=== PATIENT | female | born 1955 | race Caucasian/White ===

== ENCOUNTER 2022-03-08 12:03 | Outpatient (RCR) | payer MEDICARE, BC | END 2022-03-09 | LOC: M OT 12:03 → M PT 12:03 | DX: I69.30 Unspecified sequelae of cerebral infarction (principal) ==

== ENCOUNTER 2022-03-19 17:39 | Inpatient (IN) | payer MEDICARE, BC ==
[~2022-03-19] VITALS: Ht 172.7 cm; Wt 72.0 kg
[2022-03-19 18:35] LABS: BASO # 0.1 10^3/uL (0.0-0.2); BASO % 0.9 % (0.0-1.0); EOS # 0.1 10^3/uL (0.0-0.5); EOS % 1.1 % (0.0-3.0); HEMATOCRIT 39.1 % (36.0-47.0); HEMOGLOBIN 12.5 g/dl (12.0-15.5); LYMPH # 1.7 10^3/uL (1.5-5.0); LYMPH % 13.7 % (24.0-44.0); MEAN CORPUSCULAR VOLUME 87.7 fl (80.0-96.0); MONO # 0.9 10^3/uL (0.0-0.8); MONO % 7.2 % (2.0-8.0); NEUTROPHILS # 9.4 10^3/uL (1.5-8.5); NEUTROPHILS % 76.7 % (36.0-66.0); PLATELET COUNT, AUTOMATED 365 10^3/uL (150-450); RED BLOOD COUNT 4.46 10^6/uL (4.00-5.40); WHITE BLOOD COUNT 12.3 10^3/uL (4.0-10.0)
[2022-03-19 18:59] LABS: INR 1.04
[2022-03-19 19:00] LABS: PARTIAL THROMBOPLASTIN TIME 33.6 SECONDS (25.9-37.0)
[2022-03-19 19:05] LABS: CK-MB VALUE MASS 2.6 NG/ML (<3.6); MB/CK RELATIVE INDEX 2.63 (< OR =4)
[2022-03-19 19:12] LABS: ALBUMIN 3.4 GM/DL (3.2-5.2); ALT/SGPT 28 U/L (12-78); BILIRUBIN,DIRECT 0.2 MG/DL (0.0-0.2); BILIRUBIN,TOTAL 0.4 MG/DL (0.2-1.0); BLOOD UREA NITROGEN 15 MG/DL (7-18); CALCIUM LEVEL 9.8 MG/DL (8.8-10.2); CARBON DIOXIDE LEVEL 26 MEQ/L (21-32); CHLORIDE LEVEL 105 MEQ/L (98-107); CREATININE FOR GFR 0.94 MG/DL (0.55-1.30); FREE T4 1.13 NG/DL (0.76-1.46); GLOMERULAR FILTRATION RATE > 60.0 (>45); GLUCOSE, FASTING 135 MG/DL (70-100); SODIUM LEVEL 137 MEQ/L (136-145); TOTAL PROTEIN 7.9 GM/DL (6.4-8.2)
[2022-03-19 19:14] LABS: RSV AMPLIFICATION NEGATIVE (NEGATIVE)
[2022-03-19 19:58] LABS: CK-MB VALUE MASS 2.1 NG/ML (<3.6); MB/CK RELATIVE INDEX 1.79 (< OR =4)
[2022-03-19] MEDS ORDERED: ATOR40TA75 PO (20:54)
[2022-03-19] MEDS ORDERED: SPIR-10 PO (20:54)
[2022-03-19] MEDS ORDERED: ENOX80IN3 INJ (20:54)
[2022-03-19] MEDS ORDERED: ASPI-226 PO (20:54)
[2022-03-19] MEDS ORDERED: AMLO1TAB24 PO (20:54)
[2022-03-19] MEDS ORDERED: HOME MED LIST COMPLETE! XX SCH (20:55)
[2022-03-19] MEDS ORDERED: NS 1,000 ML IV SCH (21:25)
[2022-03-19] MEDS ORDERED: CALCIUM CARBONATE 500 MG CHEW U/D PO ONE (22:00)
[2022-03-19] MEDS ORDERED: ASPIRIN 81 MG CHEW TABLET PO ONE (22:00)
[2022-03-20] VITALS (7 sets, daily range): BP systolic 119–160; BP diastolic 67–77; PULSE 70
[2022-03-20] MEDS: ATORVASTATIN 20 MG TAB PO SCH ×2 (00:39→20:47)
[2022-03-20] MEDS: ENOXAPARIN 80MG/0.8ML SYRINGE (J1650 PER 10MG) SC SCH ×3 (00:39→20:48)
[2022-03-20 03:40] LABS: HEMATOCRIT 36.4 % (36.0-47.0); HEMOGLOBIN 11.7 g/dl (12.0-15.5); MEAN CORPUSCULAR HEMOGLOBIN 28.5 pg (27.0-33.0); MEAN CORPUSCULAR HGB CONC 32.1 g/dl (32.0-36.5); MEAN CORPUSCULAR VOLUME 88.8 fl (80.0-96.0); PLATELET COUNT, AUTOMATED 309 10^3/uL (150-450); WHITE BLOOD COUNT 11.9 10^3/uL (4.0-10.0)
[2022-03-20 03:51] LABS: INR 1.16; PROTHROMBIN TIME 15.2 SECONDS (12.7-14.5)
[2022-03-20 03:52] LABS: PARTIAL THROMBOPLASTIN TIME 47.1 SECONDS (25.9-37.0)
[2022-03-20] MEDS ORDERED: ASPIRIN 81 MG CHEW TABLET PO SCH (09:00)
[2022-03-21] VITALS: BP 134/82
[2022-03-21 04:00] VITALS: BP 153/80
[2022-03-21 06:42] LABS: BASO # 0.1 10^3/uL (0.0-0.2); BASO % 1.2 % (0.0-1.0); EOS # 0.3 10^3/uL (0.0-0.5); EOS % 2.3 % (0.0-3.0); HEMATOCRIT 35.5 % (36.0-47.0); HEMOGLOBIN 11.2 g/dl (12.0-15.5); LYMPH # 1.7 10^3/uL (1.5-5.0); LYMPH % 14.9 % (24.0-44.0); MEAN CORPUSCULAR HEMOGLOBIN 28.1 pg (27.0-33.0); MEAN CORPUSCULAR HGB CONC 31.5 g/dl (32.0-36.5); MONO # 0.9 10^3/uL (0.0-0.8); MONO % 8.1 % (2.0-8.0); NEUTROPHILS # 8.2 10^3/uL (1.5-8.5); NEUTROPHILS % 73.1 % (36.0-66.0); PLATELET COUNT, AUTOMATED 337 10^3/uL (150-450); RED BLOOD COUNT 3.99 10^6/uL (4.00-5.40); WHITE BLOOD COUNT 11.2 10^3/uL (4.0-10.0)
[2022-03-21 07:36] LABS: BLOOD UREA NITROGEN 19 MG/DL (7-18); CALCIUM LEVEL 9.5 MG/DL (8.8-10.2); CARBON DIOXIDE LEVEL 26 MEQ/L (21-32); CHLORIDE LEVEL 107 MEQ/L (98-107); CREATININE FOR GFR 0.65 MG/DL (0.55-1.30); GLOMERULAR FILTRATION RATE > 60.0 (>45); GLUCOSE, FASTING 108 MG/DL (70-100); MAGNESIUM LEVEL 2.2 MG/DL (1.8-2.4); POTASSIUM SERUM 3.7 MEQ/L (3.5-5.1); SODIUM LEVEL 137 MEQ/L (136-145)
[2022-03-21 09:17] VITALS: BP 147/68
[2022-03-21] MEDS: ENOXAPARIN 80MG/0.8ML SYRINGE (J1650 PER 10MG) SC SCH ×3 (09:27→20:34)
[2022-03-21] MEDS: ASPIRIN 81 MG CHEW TABLET PO SCH (09:28)
[2022-03-21] MEDS: SPIRONOLACTONE 12.5MG PER 1/2 TABLET PO SCH (09:28)
[2022-03-21] MEDS: amLODIPine 5 MG TAB PO SCH (09:28)
[2022-03-21 11:58] VITALS: BP 114/63
[2022-03-21 15:47] VITALS: BP 133/74
[2022-03-21 19:09] VITALS: BP 132/70
[2022-03-21] MEDS: ATORVASTATIN 20 MG TAB PO SCH (20:32)
[2022-03-22] VITALS: BP_SYST 132; BP_SYST 140; BP_DIAS 70; BP_DIAS 81
[2022-03-22 04:00] VITALS: BP 142/72
[2022-03-22 06:02] LABS: BASO # 0.1 10^3/uL (0.0-0.2); BASO % 1.2 % (0.0-1.0); EOS # 0.3 10^3/uL (0.0-0.5); HEMATOCRIT 34.9 % (36.0-47.0); HEMOGLOBIN 11.2 g/dl (12.0-15.5); LYMPH # 1.7 10^3/uL (1.5-5.0); LYMPH % 21.9 % (24.0-44.0); MEAN CORPUSCULAR HEMOGLOBIN 28.4 pg (27.0-33.0); MEAN CORPUSCULAR HGB CONC 32.1 g/dl (32.0-36.5); MEAN CORPUSCULAR VOLUME 88.4 fl (80.0-96.0); MONO # 0.7 10^3/uL (0.0-0.8); MONO % 8.9 % (2.0-8.0); NEUTROPHILS # 4.8 10^3/uL (1.5-8.5); NEUTROPHILS % 63.6 % (36.0-66.0); PLATELET COUNT, AUTOMATED 345 10^3/uL (150-450); RED BLOOD COUNT 3.95 10^6/uL (4.00-5.40); WHITE BLOOD COUNT 7.5 10^3/uL (4.0-10.0)
[2022-03-22 06:48] LABS: BLOOD UREA NITROGEN 19 MG/DL (7-18); CALCIUM LEVEL 9.7 MG/DL (8.8-10.2); CARBON DIOXIDE LEVEL 25 MEQ/L (21-32); CHLORIDE LEVEL 106 MEQ/L (98-107); CREATININE FOR GFR 0.67 MG/DL (0.55-1.30); GLOMERULAR FILTRATION RATE > 60.0 (>45); GLUCOSE, FASTING 107 MG/DL (70-100); MAGNESIUM LEVEL 2.1 MG/DL (1.8-2.4); SODIUM LEVEL 137 MEQ/L (136-145)
[2022-03-22 07:24] VITALS: BP 140/72
[2022-03-22 08:25] VITALS: BP 140/72
[2022-03-22] MEDS: SPIRONOLACTONE 12.5MG PER 1/2 TABLET PO SCH (08:25)
[2022-03-22] MEDS: amLODIPine 5 MG TAB PO SCH (08:25)
[2022-03-22] MEDS: ASPIRIN 81 MG CHEW TABLET PO SCH (08:26)
[2022-03-22] MEDS ORDERED: ATOR80TA59 PO (09:09)
== END 2022-03-22 09:41 | disposition home or self-care (01) | DRG 65 ==
LOC: M ED 17:39 → M ED INP 21:23 → M PCU 03-20 00:04
PROVIDERS: ADMIT Internal Medicine; ATTEND Internal Medicine
PROC: B246ZZZ Ultrasonography of Right and Left Heart (ICD-10-PCS; principal; 2022-03-19)
DX: I63.9 Cerebral infarction, unspecified (principal); I69.354 Hemiplegia and hemiparesis following cerebral infarction affecting left non-dominant side; I10 Essential (primary) hypertension; E78.5 Hyperlipidemia, unspecified; Z20.822 Contact with and (suspected) exposure to COVID-19; D69.6 Thrombocytopenia, unspecified; C54.1 Malignant neoplasm of endometrium; Z79.82 Long term (current) use of aspirin; Z79.899 Other long term (current) drug therapy; Z88.2 Allergy status to sulfonamides; Z91.041 Radiographic dye allergy status

== ENCOUNTER 2022-04-05 12:11 | Outpatient (RCR) | payer MEDICARE, BC ==
[~2022-04-05 12:11] MED LIST: AMLO1TAB24 PO; ASPI-226 PO; ATOR40TA75 PO; ATOR80TA59 PO; ENOX80IN3 INJ; SPIR-10 PO
[2022-04-09] MEDS ORDERED: ENOX40IN3 SC (21:02)
[2022-04-09] MEDS ORDERED: ONDA8TAB8 PO (21:02)
[2022-04-09] MEDS ORDERED: ZETI10TA16 PO (21:02)
== END 2022-04-08 ==
LOC: M PT 12:11
PROVIDERS: ATTEND Internal Medicine
DX: I69.320 Aphasia following cerebral infarction (principal); F80.1 Expressive language disorder; R26.9 Unspecified abnormalities of gait and mobility; I69.318 Other symptoms and signs involving cognitive functions following cerebral infarction; I69.398 Other sequelae of cerebral infarction

== ENCOUNTER → 2022-04-15 | Outpatient (CLI) | payer MEDICARE, BC ==
[~2022-04-15] MED LIST changes: +CEPH500C PO; +ENOX40IN3 SC; +OMEP-173; +ONDA8TAB8 PO; +ZETI10TA16 PO
== END ==
LOC: M WUC 10:44
PROVIDERS: ATTEND Internal Medicine
DX: R07.89 Other chest pain (principal); Z95.828 Presence of other vascular implants and grafts

== ENCOUNTER 2022-04-17 17:00 | Emergency (ER) | payer MEDICARE, BC ==
[~2022-04-17] VITALS: Ht 170.2 cm; Wt 68.2 kg
[~2022-04-17 17:00] MED LIST changes: -CEPH500C PO; -OMEP-173
[2022-04-17] MEDS ORDERED: ISOVUE-370 76% 100ML VIAL As Ordered ONE (17:33)
[2022-04-17 17:40] LABS: BASO # 0.1 10^3/uL (0.0-0.2); BASO % 1.3 % (0.0-1.0); EOS # 0.1 10^3/uL (0.0-0.5); HEMATOCRIT 32.1 % (36.0-47.0); HEMOGLOBIN 10.4 g/dl (12.0-15.5); LYMPH # 1.3 10^3/uL (1.5-5.0); MEAN CORPUSCULAR HEMOGLOBIN 28.7 pg (27.0-33.0); MEAN CORPUSCULAR HGB CONC 32.4 g/dl (32.0-36.5); MEAN CORPUSCULAR VOLUME 88.4 fl (80.0-96.0); MONO # 0.4 10^3/uL (0.0-0.8); MONO % 11.1 % (2.0-8.0); NEUTROPHILS # 2.1 10^3/uL (1.5-8.5); NEUTROPHILS % 52.3 % (36.0-66.0); PLATELET COUNT, AUTOMATED 284 10^3/uL (150-450); RED BLOOD COUNT 3.63 10^6/uL (4.00-5.40)
[2022-04-17] MEDS ORDERED: SODIUM CHLORIDE 0.9% INJ 10 ML SYR IV SCH (18:00)
[2022-04-17 18:08] LABS: PROTHROMBIN TIME 13.6 SECONDS (12.7-14.5)
[2022-04-17 18:09] LABS: PARTIAL THROMBOPLASTIN TIME 36.9 SECONDS (25.9-37.0)
[2022-04-17 18:13] LABS: CK-MB VALUE MASS 3.1 NG/ML (<3.6); MB/CK RELATIVE INDEX 3.1 (< OR =4)
[2022-04-17 18:28] LABS: VENOUS O2 SATURATION 83.3 % (60.0-80.0); VENOUS PARTIAL PRESSURE CO2 42.4 mmHg (38.0-50.0); VENOUS PARTIAL PRESSURE O2 49.3 mmHg (30.0-50.0); VENOUS PH 7.389 UNITS (7.330-7.430); VENOUS STANDARD HCO3 24.2 MEQ/L; VENOUS TOTAL CO2 26.3 MEQ/L (24.0-28.0)
[2022-04-17] MEDS ORDERED: MORPHINE 2 MG/ML 1ML VIAL IV ONE (18:30)
[2022-04-17] MEDS ORDERED: OMEP-173 (18:51)
[2022-04-17 19:15] VITALS: BP 139/66
[2022-04-17] MEDS ORDERED: ENOXAPARIN 80MG/0.8ML SYRINGE (J1650 PER 10MG) SC ONE (19:25)
[2022-04-17 19:29] LABS: ALBUMIN 2.8 GM/DL (3.2-5.2); ALT/SGPT 56 U/L (12-78); BILIRUBIN,DIRECT < 0.1 MG/DL (0.0-0.2); BILIRUBIN,TOTAL 0.2 MG/DL (0.2-1.0); TOTAL PROTEIN 6.2 GM/DL (6.4-8.2)
[2022-04-17 20:15] VITALS: BP 122/60
[2022-04-17] MEDS ORDERED: cefTRIAXone SOD 1 GM in D5W MINI-BAG PLUS 50 ML IV ONE (22:00)
[2022-04-17] MEDS ORDERED: CEPH500C PO (23:35)
[2022-04-17 23:45] VITALS: BP 127/63
== END 2022-04-18 00:11 | disposition home or self-care (01) ==
LOC: M ED 17:00
DX: R41.0 Disorientation, unspecified (principal); R90.82 White matter disease, unspecified; I10 Essential (primary) hypertension; E78.5 Hyperlipidemia, unspecified; Z79.899 Other long term (current) drug therapy; Z88.1 Allergy status to other antibiotic agents; Z88.2 Allergy status to sulfonamides; Z95.828 Presence of other vascular implants and grafts
CPT/HCPCS: 70450; 70496; 70498; 70551; 71045; 80047; 80076; 81000; 81015; 82140; 82550; 82553; 82803; 83605; 84484; 85025; 85610; 85730; 86850; 86900; 86901; 87088; 87186; 93005; 93041; 94760; 96374; 96375; 99285; J0696; J1642; J1650; J2270; Q9967

== ENCOUNTER → 2022-04-19 | Outpatient (CLI) | payer MEDICARE, BC ==
[~2022-04-19] MED LIST changes: +CEPH500C PO; +OMEP-173
[2022-04-19 09:52] LABS: BASO # 0.1 10^3/uL (0.0-0.2); BASO % 2.4 % (0.0-1.0); EOS # 0.2 10^3/uL (0.0-0.5); EOS % 4.1 % (0.0-3.0); HEMATOCRIT 36.2 % (36.0-47.0); HEMOGLOBIN 11.1 g/dl (12.0-15.5); LYMPH # 1.5 10^3/uL (1.5-5.0); LYMPH % 35.5 % (24.0-44.0); MEAN CORPUSCULAR HGB CONC 30.7 g/dl (32.0-36.5); MEAN CORPUSCULAR VOLUME 91.4 fl (80.0-96.0); MONO # 0.5 10^3/uL (0.0-0.8); MONO % 11.5 % (2.0-8.0); NEUTROPHILS # 1.9 10^3/uL (1.5-8.5); NEUTROPHILS % 46.3 % (36.0-66.0); PLATELET COUNT, AUTOMATED 300 10^3/uL (150-450); RED BLOOD COUNT 3.96 10^6/uL (4.00-5.40); WHITE BLOOD COUNT 4.2 10^3/uL (4.0-10.0)
== END ==
LOC: M LAB 08:50
PROVIDERS: ATTEND Nurse Practitioner
DX: C55 Malignant neoplasm of uterus, part unspecified (principal); Z79.899 Other long term (current) drug therapy

== ENCOUNTER → 2022-04-25 | Outpatient (CLI) | payer MEDICARE, BC | LOC: M WUC 10:17 | PROVIDERS: ATTEND Internal Medicine | DX: Q05.9 Spina bifida, unspecified (principal); M47.816 Spondylosis without myelopathy or radiculopathy, lumbar region ==

== ENCOUNTER 2022-05-02 10:02 | Emergency (ER) | payer MEDICARE, BC ==
[~2022-05-02] VITALS: Ht 170.2 cm; Wt 71.1 kg
[2022-05-02 12:18] LABS: BASO # 0.1 10^3/uL (0.0-0.2); BASO % 1.4 % (0.0-1.0); EOS # 0.2 10^3/uL (0.0-0.5); EOS % 4.8 % (0.0-3.0); HEMATOCRIT 34.3 % (36.0-47.0); HEMOGLOBIN 11.1 g/dl (12.0-15.5); LYMPH # 1.4 10^3/uL (1.5-5.0); LYMPH % 39.9 % (24.0-44.0); MEAN CORPUSCULAR HEMOGLOBIN 29.3 pg (27.0-33.0); MEAN CORPUSCULAR HGB CONC 32.4 g/dl (32.0-36.5); MEAN CORPUSCULAR VOLUME 90.5 fl (80.0-96.0); MONO # 0.2 10^3/uL (0.0-0.8); MONO % 5.1 % (2.0-8.0); NEUTROPHILS # 1.7 10^3/uL (1.5-8.5); NEUTROPHILS % 48.5 % (36.0-66.0); PLATELET COUNT, AUTOMATED 210 10^3/uL (150-450); RED BLOOD COUNT 3.79 10^6/uL (4.00-5.40); WHITE BLOOD COUNT 3.5 10^3/uL (4.0-10.0)
[2022-05-02 12:31] LABS: INR 0.91; PROTHROMBIN TIME 12.5 SECONDS (12.5-14.5)
[2022-05-02 12:32] LABS: PARTIAL THROMBOPLASTIN TIME 39.1 SECONDS (24.8-34.2)
[2022-05-02 12:50] LABS: RSV AMPLIFICATION NEGATIVE (NEGATIVE)
[2022-05-02 13:13] LABS: CK-MB VALUE MASS 3.6 NG/ML (<3.6); MB/CK RELATIVE INDEX 4.29 (< OR =4)
[2022-05-02 13:19] LABS: ALBUMIN 3.5 GM/DL (3.2-5.2); ALT/SGPT 54 U/L (12-78); BILIRUBIN,DIRECT < 0.1 MG/DL (0.0-0.2); BILIRUBIN,TOTAL 0.3 MG/DL (0.2-1.0); BLOOD UREA NITROGEN 14 MG/DL (7-18); CALCIUM LEVEL 9.8 MG/DL (8.8-10.2); CARBON DIOXIDE LEVEL 28 MEQ/L (21-32); CHLORIDE LEVEL 106 MEQ/L (98-107); CREATININE FOR GFR 0.69 MG/DL (0.55-1.30); GLOMERULAR FILTRATION RATE > 60.0 (>45); GLUCOSE, FASTING 128 MG/DL (70-100); NT-PRO BNP 81 PG/ML (<125); POTASSIUM SERUM 3.9 MEQ/L (3.5-5.1); SODIUM LEVEL 137 MEQ/L (136-145)
[2022-05-02] MEDS ORDERED: ISOVUE-370 76% 100ML VIAL As Ordered ONE (13:36)
[2022-05-02 15:04] LABS: CK-MB VALUE MASS 3.4 NG/ML (<3.6); MB/CK RELATIVE INDEX 4.25 (< OR =4)
[2022-05-02 16:38] LABS: CK-MB VALUE MASS 2.9 NG/ML (<3.6); MB/CK RELATIVE INDEX 3.82 (< OR =4)
[2022-05-02] MEDS ORDERED: SODIUM CHLORIDE 0.9% INJ 10 ML SYR IV PRN (17:05)
[2022-05-02 17:30] VITALS: BP 146/72
[2022-05-02] MEDS ORDERED: SODIUM CHLORIDE 0.9% INJ 10 ML SYR IV SCH (18:00)
== END 2022-05-02 17:45 | disposition home or self-care (01) ==
LOC: M ED 10:02
DX: R07.9 Chest pain, unspecified (principal); I10 Essential (primary) hypertension; E78.5 Hyperlipidemia, unspecified; Z86.73 Personal history of transient ischemic attack (TIA), and cerebral infarction without residual deficits; H40.9 Unspecified glaucoma; F32.9 Major depressive disorder, single episode, unspecified; Z79.899 Other long term (current) drug therapy; Z88.2 Allergy status to sulfonamides
CPT/HCPCS: 71045; 71275; 80048; 80076; 82550; 82553; 83880; 84443; 84484; 85025; 85610; 85730; 87631; 93005; 93041; 94760; 99285; J1642; Q9967

== ENCOUNTER 2022-05-05 13:36 | Outpatient (RCR) | payer MEDICARE, BC | END 2022-05-09 23:59 | disposition home or self-care (01) | LOC: M OT 13:36 → M ST 05-10 12:14 → M PT 05-10 12:14 | PROVIDERS: ATTEND Internal Medicine | DX: I63.9 Cerebral infarction, unspecified (principal); F80.1 Expressive language disorder; R26.9 Unspecified abnormalities of gait and mobility ==

== ENCOUNTER → 2022-05-09 | Outpatient (CLI) | payer MEDICARE, BC ==
[2022-05-09 10:47] LABS: BASO % 0.9 % (0.0-1.0); EOS # 0.1 10^3/uL (0.0-0.5); HEMOGLOBIN 10.9 g/dl (12.0-15.5); LYMPH # 1.3 10^3/uL (1.5-5.0); LYMPH % 36.4 % (24.0-44.0); MEAN CORPUSCULAR HEMOGLOBIN 28.7 pg (27.0-33.0); MEAN CORPUSCULAR HGB CONC 30.3 g/dl (32.0-36.5); MEAN CORPUSCULAR VOLUME 94.7 fl (80.0-96.0); MONO # 0.4 10^3/uL (0.0-0.8); MONO % 10.2 % (2.0-8.0); NEUTROPHILS # 1.7 10^3/uL (1.5-8.5); NEUTROPHILS % 50.2 % (36.0-66.0); PLATELET COUNT, AUTOMATED 206 10^3/uL (150-450); WHITE BLOOD COUNT 3.4 10^3/uL (4.0-10.0)
== END ==
LOC: M LAB 08:45
PROVIDERS: ATTEND Nurse Practitioner
DX: C55 Malignant neoplasm of uterus, part unspecified (principal); Z79.899 Other long term (current) drug therapy

== ENCOUNTER → 2022-05-30 | Outpatient (CLI) | payer MEDICARE, BC ==
[2022-05-30 09:00] LABS: BASO % 1.3 % (0.0-1.0); EOS % 1.3 % (0.0-3.0); HEMATOCRIT 32.8 % (36.0-47.0); HEMOGLOBIN 10.3 g/dl (12.0-15.5); LYMPH # 1.3 10^3/uL (1.5-5.0); LYMPH % 39.3 % (24.0-44.0); MEAN CORPUSCULAR HEMOGLOBIN 29.7 pg (27.0-33.0); MEAN CORPUSCULAR HGB CONC 31.4 g/dl (32.0-36.5); MEAN CORPUSCULAR VOLUME 94.5 fl (80.0-96.0); MONO # 0.3 10^3/uL (0.0-0.8); MONO % 8.5 % (2.0-8.0); NEUTROPHILS # 1.6 10^3/uL (1.5-8.5); NEUTROPHILS % 49.3 % (36.0-66.0); PLATELET COUNT, AUTOMATED 161 10^3/uL (150-450); RED BLOOD COUNT 3.47 10^6/uL (4.00-5.40); WHITE BLOOD COUNT 3.2 10^3/uL (4.0-10.0)
== END ==
LOC: M LAB 08:00
PROVIDERS: ATTEND Nurse Practitioner
DX: C55 Malignant neoplasm of uterus, part unspecified (principal); Z79.899 Other long term (current) drug therapy

== ENCOUNTER → 2022-06-07 12:00 | Outpatient (RCR) | payer MEDICARE, BC ==
[~2022-06-07 12:00] MED LIST changes: +EZET10TA21 PO; -OMEP-173; +OMEP-173 PO; +ONDA4TAB6 PO; +PERC10TA26 PO; +TRAM50TA2 PO; +[UNRECOGNIZED DRUG - OTHER] PO
== END | disposition home or self-care (01) ==
LOC: M PT 05-10 12:15 → M ST 05-12 12:46 → M OT 05-12 14:19 → M ST 05-17 12:00 → M OT 05-17 13:15 → M PT 05-17 14:30 → M OT 05-26 12:01 → M ST 05-26 12:01 → M ONCM 05-30 08:30 → M OT 05-31 12:00 → M ST 05-31 12:00 → M PT 05-31 12:00 → M ST 11:59 → M OT 12:00 → M PT 12:00
PROVIDERS: ATTEND Internal Medicine
DX: I63.9 Cerebral infarction, unspecified (principal); F80.1 Expressive language disorder; R26.1 Paralytic gait

== ENCOUNTER → 2022-06-20 | Outpatient (REF) | payer MEDICARE, BC ==
[~2022-06-20] MED LIST changes: -EZET10TA21 PO; +OMEP-173; -OMEP-173 PO; -ONDA4TAB6 PO; -PERC10TA26 PO; -TRAM50TA2 PO; -[UNRECOGNIZED DRUG - OTHER] PO
[2022-06-20 09:01] LABS: BASO % 0.8 % (0.0-1.0); EOS % 0.8 % (0.0-3.0); HEMATOCRIT 30.6 % (36.0-47.0); HEMOGLOBIN 9.9 g/dl (12.0-15.5); LYMPH # 0.5 10^3/uL (1.5-5.0); LYMPH % 20.5 % (24.0-44.0); MEAN CORPUSCULAR HEMOGLOBIN 31.3 pg (27.0-33.0); MEAN CORPUSCULAR HGB CONC 32.4 g/dl (32.0-36.5); MEAN CORPUSCULAR VOLUME 96.8 fl (80.0-96.0); MONO # 0.2 10^3/uL (0.0-0.8); MONO % 8.2 % (2.0-8.0); NEUTROPHILS # 1.7 10^3/uL (1.5-8.5); NEUTROPHILS % 69.3 % (36.0-66.0); PLATELET COUNT, AUTOMATED 143 10^3/uL (150-450); RED BLOOD COUNT 3.16 10^6/uL (4.00-5.40); WHITE BLOOD COUNT 2.4 10^3/uL (4.0-10.0)
== END ==
LOC: M LAB REF 08:35
PROVIDERS: ATTEND Nurse Practitioner
DX: C55 Malignant neoplasm of uterus, part unspecified (principal); Z79.899 Other long term (current) drug therapy

== ENCOUNTER 2022-06-23 12:29 | Outpatient (RCR) | payer MEDICARE, BC ==
[~2022-06-23 12:29] MED LIST changes: -OMEP-173; +OMEP-173 PO; +SODIUM CHLORIDE 0.9% INJ 10 ML SYR IV PRN
[2022-06-27] MEDS ORDERED: EZET10TA21 PO (10:57)
[2022-06-27] MEDS ORDERED: [UNRECOGNIZED DRUG - OTHER] PO (10:57)
[2022-06-27] MEDS ORDERED: TRAM50TA2 PO (10:57)
[2022-06-27] MEDS ORDERED: CEPH500C PO (10:57)
[2022-06-27] MEDS ORDERED: ONDA4TAB6 PO (16:00)
[2022-06-27] MEDS ORDERED: PERC10TA26 PO (16:00)
== END 2022-07-09 ==
LOC: M PT 12:29 → M ST 12:29
PROVIDERS: ATTEND Internal Medicine
DX: I63.9 Cerebral infarction, unspecified (principal); F80.1 Expressive language disorder; R26.9 Unspecified abnormalities of gait and mobility; R47.01 Aphasia

== ENCOUNTER 2022-06-27 09:25 | Emergency (ER) | payer MEDICARE, BC ==
[~2022-06-27] VITALS: Ht 172.7 cm; Wt 68.2 kg
[~2022-06-27 09:25] MED LIST changes: -SODIUM CHLORIDE 0.9% INJ 10 ML SYR IV PRN
[2022-06-27] MEDS: HYDROMORPHONE HCL 0.5 MG/ 0.5 ML SYRINGE (J1170 PER 1) IV PRN ×2 (10:29→12:27)
[2022-06-27] MEDS ORDERED: TRAM50TA2 PO (10:57)
[2022-06-27] MEDS ORDERED: CEPH500C PO (10:57)
[2022-06-27] MEDS ORDERED: [UNRECOGNIZED DRUG - OTHER] PO (10:57)
[2022-06-27] MEDS ORDERED: EZET10TA21 PO (10:57)
[2022-06-27] MEDS ORDERED: ONDANSETRON 4MG 2ML VIAL IV ONE (15:40)
[2022-06-27] MEDS ORDERED: PERC10TA26 PO (16:00)
[2022-06-27] MEDS ORDERED: ONDA4TAB6 PO (16:00)
[2022-06-27 16:16] VITALS: BP 130/71
== END 2022-06-27 16:28 | disposition home or self-care (01) ==
LOC: M ED 09:25
DX: S42.201A Unspecified fracture of upper end of right humerus, initial encounter for closed fracture (principal); W00.0XXA Fall on same level due to ice and snow, initial encounter; Y92.89 Other specified places as the place of occurrence of the external cause; Y92.099 Unspecified place in other non-institutional residence as the place of occurrence of the external cause; E78.5 Hyperlipidemia, unspecified; Z86.73 Personal history of transient ischemic attack (TIA), and cerebral infarction without residual deficits; K21.9 Gastro-esophageal reflux disease without esophagitis; C80.1 Malignant (primary) neoplasm, unspecified; Z92.21 Personal history of antineoplastic chemotherapy; Z95.818 Presence of other cardiac implants and grafts; Z79.899 Other long term (current) drug therapy; Z88.2 Allergy status to sulfonamides
CPT/HCPCS: 70450; 71101; 72125; 72220; 73030; 73070; 73100; 73502; 96374; 96375; 96376; 99283; J1170; J2405

== ENCOUNTER → 2022-07-05 | Outpatient (REF) | payer MEDICARE, BC ==
[~2022-07-05] MED LIST changes: +EZET10TA21 PO; +ONDA4TAB6 PO; +PERC10TA26 PO; +TRAM50TA2 PO; +[UNRECOGNIZED DRUG - OTHER] PO
[2022-07-05 16:38] LABS: BASO % 0.3 % (0.0-1.0); HEMATOCRIT 26.4 % (36.0-47.0); HEMOGLOBIN 8.5 g/dl (12.0-15.5); LYMPH % 29.4 % (24.0-44.0); MEAN CORPUSCULAR HEMOGLOBIN 30.8 pg (27.0-33.0); MEAN CORPUSCULAR HGB CONC 32.2 g/dl (32.0-36.5); MEAN CORPUSCULAR VOLUME 95.7 fl (80.0-96.0); MONO # 0.3 10^3/uL (0.0-0.8); MONO % 7.7 % (2.0-8.0); NEUTROPHILS % 62.3 % (36.0-66.0); PLATELET COUNT, AUTOMATED 250 10^3/uL (150-450); RED BLOOD COUNT 2.76 10^6/uL (4.00-5.40); WHITE BLOOD COUNT 3.2 10^3/uL (4.0-10.0)
[2022-07-05 17:18] LABS: ALKALINE PHOSPHATASE 97 U/L (46-116); ALT/SGPT 47 U/L (7.0-40); AST/SGOT 75 U/L (<34); BILIRUBIN,TOTAL 0.7 MG/DL (0.3-1.2); BLOOD UREA NITROGEN 20 MG/DL (9-23); CALCIUM LEVEL 8.5 MG/DL (8.3-10.6); CARBON DIOXIDE LEVEL 26 MMOL/L (20-31); CHLORIDE LEVEL 97 MMOL/L (98-107); CREATININE FOR GFR 0.67 MG/DL (0.55-1.30); GLOMERULAR FILTRATION RATE > 60.0 (>45); GLUCOSE, FASTING 98 MG/DL (74-106); POTASSIUM SERUM 3.5 MMOL/L (3.5-5.1); SODIUM LEVEL 132 MMOL/L (136-145); TOTAL PROTEIN 5.9 G/DL (5.7-8.2)
== END ==
LOC: M LAB REF 16:28
PROVIDERS: ATTEND Colon & Rectal Surgery
DX: C54.1 Malignant neoplasm of endometrium (principal)

== ENCOUNTER → 2022-07-18 | Outpatient (REF) ==
[2022-07-18 11:40] LABS: HEMATOCRIT 28.4 % (36.0-47.0); HEMOGLOBIN 9.2 g/dl (12.0-15.5); MEAN CORPUSCULAR HEMOGLOBIN 32.2 pg (27.0-33.0); MEAN CORPUSCULAR HGB CONC 32.4 g/dl (32.0-36.5); MEAN CORPUSCULAR VOLUME 99.3 fl (80.0-96.0); PLATELET COUNT, AUTOMATED 408 10^3/uL (150-450); RED BLOOD COUNT 2.86 10^6/uL (4.00-5.40)
[2022-07-18 11:57] LABS: BLOOD UREA NITROGEN 14 MG/DL (9-23); CALCIUM LEVEL 9.4 MG/DL (8.3-10.6); CARBON DIOXIDE LEVEL 26 MMOL/L (20-31); CHLORIDE LEVEL 99 MMOL/L (98-107); CREATININE FOR GFR 0.67 MG/DL (0.55-1.30); GLOMERULAR FILTRATION RATE > 60.0 (>45); GLUCOSE, FASTING 131 MG/DL (74-106); POTASSIUM SERUM 3.9 MMOL/L (3.5-5.1); SODIUM LEVEL 135 MMOL/L (136-145)
== END ==
PROVIDERS: ATTEND Internal Medicine
DX: T14.8XXA Other injury of unspecified body region, initial encounter (principal); C80.1 Malignant (primary) neoplasm, unspecified

== ENCOUNTER → 2022-07-19 | Outpatient (REF) | payer BC, MEDICARE | LOC: M SOG 08:38 → EDSTATUS 07-26 16:08 | PROVIDERS: ATTEND Orthopaedic Surgery | DX: S42.291A Other displaced fracture of upper end of right humerus, initial encounter for closed fracture (principal); X58.XXXA Exposure to other specified factors, initial encounter; Y92.9 Unspecified place or not applicable; Y93.9 Activity, unspecified; Y99.9 Unspecified external cause status ==

== ENCOUNTER → 2022-07-21 | Outpatient (REF) | payer BC, MEDICARE | PROVIDERS: ATTEND Internal Medicine | DX: R05.8 Other specified cough (principal) ==

== ENCOUNTER → 2022-07-21 | Outpatient (CLI) | payer MEDICARE, BC | LOC: M RAD 10:22 | PROVIDERS: ATTEND Internal Medicine | DX: R06.02 Shortness of breath (principal); R05.9 Cough, unspecified ==

== ENCOUNTER → 2022-07-22 | Outpatient (REF) | payer BC, MEDICARE | LOC: M RAD 09:00 → EDSTATUS 14:00 | PROVIDERS: ATTEND Physician Assistant | DX: R19.04 Left lower quadrant abdominal swelling, mass and lump (principal); C54.1 Malignant neoplasm of endometrium ==

== ENCOUNTER → 2022-07-25 | Outpatient (REF) ==
[2022-07-25 15:23] LABS: HEMATOCRIT 32.1 % (36.0-47.0); HEMOGLOBIN 9.7 g/dl (12.0-15.5); MEAN CORPUSCULAR HEMOGLOBIN 31.5 pg (27.0-33.0); MEAN CORPUSCULAR HGB CONC 30.2 g/dl (32.0-36.5); MEAN CORPUSCULAR VOLUME 104.2 fl (80.0-96.0); PLATELET COUNT, AUTOMATED 350 10^3/uL (150-450); RED BLOOD COUNT 3.08 10^6/uL (4.00-5.40); WHITE BLOOD COUNT 4.4 10^3/uL (4.0-10.0)
[2022-07-25 15:56] LABS: BLOOD UREA NITROGEN 16 MG/DL (9-23); CALCIUM LEVEL 8.9 MG/DL (8.3-10.6); CARBON DIOXIDE LEVEL 25 MMOL/L (20-31); CHLORIDE LEVEL 101 MMOL/L (98-107); CREATININE FOR GFR 0.63 MG/DL (0.55-1.30); GLOMERULAR FILTRATION RATE > 60.0 (>45); GLUCOSE, FASTING 170 MG/DL (74-106); POTASSIUM SERUM 4.3 MMOL/L (3.5-5.1); SODIUM LEVEL 135 MMOL/L (136-145)
== END ==
PROVIDERS: ATTEND Internal Medicine
DX: C80.1 Malignant (primary) neoplasm, unspecified (principal)

== ENCOUNTER → 2022-08-01 | Outpatient (REF) | PROVIDERS: ATTEND Internal Medicine | DX: T14.8XXA Other injury of unspecified body region, initial encounter (principal); Z53.8 Procedure and treatment not carried out for other reasons ==

== ENCOUNTER → 2022-08-08 | Outpatient (REF) | PROVIDERS: ATTEND Internal Medicine | DX: C80.1 Malignant (primary) neoplasm, unspecified (principal); Z53.8 Procedure and treatment not carried out for other reasons ==

== ENCOUNTER → 2022-08-09 | Outpatient (RCR) | payer MEDICARE, BC | LOC: M PT 09:06 → M OT 10:30 → M ST 10:41 | PROVIDERS: ATTEND Physician Assistant | DX: M62.81 Muscle weakness (generalized) (principal); R26.81 Unsteadiness on feet; R41.841 Cognitive communication deficit; R47.01 Aphasia; Z74.1 Need for assistance with personal care ==

== ENCOUNTER → 2022-08-25 | Outpatient (REF) | payer MEDICARE, BC ==
[2022-08-25 14:07] LABS: HEMATOCRIT 34.8 % (36.0-47.0); MEAN CORPUSCULAR HEMOGLOBIN 31.8 pg (27.0-33.0); MEAN CORPUSCULAR HGB CONC 31.6 g/dl (32.0-36.5); MEAN CORPUSCULAR VOLUME 100.6 fl (80.0-96.0); PLATELET COUNT, AUTOMATED 266 10^3/uL (150-450); RED BLOOD COUNT 3.46 10^6/uL (4.00-5.40); WHITE BLOOD COUNT 5.3 10^3/uL (4.0-10.0)
[2022-08-25 14:44] LABS: ALBUMIN 3.6 G/DL (3.2-5.2); ALKALINE PHOSPHATASE 113 U/L (46-116); ALT/SGPT 23 U/L (7.0-40); AST/SGOT 26 U/L (<34); BILIRUBIN,TOTAL 0.5 MG/DL (0.3-1.2); BLOOD UREA NITROGEN 15 MG/DL (9-23); CALCIUM LEVEL 9.7 MG/DL (8.3-10.6); CARBON DIOXIDE LEVEL 30 MMOL/L (20-31); CHLORIDE LEVEL 104 MMOL/L (98-107); CREATININE FOR GFR 0.67 MG/DL (0.55-1.30); GLOMERULAR FILTRATION RATE > 60.0 (>45); GLUCOSE, FASTING 150 MG/DL (74-106); POTASSIUM SERUM 3.8 MMOL/L (3.5-5.1); SODIUM LEVEL 139 MMOL/L (136-145)
== END ==
LOC: M LAB REF 13:37
PROVIDERS: ATTEND Internal Medicine
DX: R60.0 Localized edema (principal)

== ENCOUNTER → 2022-08-25 | Outpatient (CLI) | payer MEDICARE, BC ==
[~2022-08-25] MED LIST changes: +SODIUM CHLORIDE 0.9% INJ 10 ML SYR IV PRN
== END ==
LOC: M ONCM 13:30
PROVIDERS: ATTEND Internal Medicine
DX: R60.0 Localized edema (principal)

== ENCOUNTER → 2022-09-01 | Outpatient (CLI) | payer MEDICARE, BC ==
[~2022-09-01] MED LIST changes: -SODIUM CHLORIDE 0.9% INJ 10 ML SYR IV PRN
== END ==
LOC: M SOG 14:09
PROVIDERS: ATTEND Orthopaedic Surgery
DX: S42.231D 3-part fracture of surgical neck of right humerus, subsequent encounter for fracture with routine healing (principal)

== ENCOUNTER → 2022-09-06 | Outpatient (RCR) | payer MEDICARE, BC | LOC: M ST 08-16 09:00 → M PT 08-16 09:15 → M OT 08-16 09:58 → M PT 08-23 10:39 → M ST 08-23 11:30 → M PT 08-30 07:45 → M OT 08-30 07:45 → M ST 08-30 07:45 → M OT 09-01 10:36 → M PT 09-01 10:36 → M ST 07:55 → M OT 08:54 → M PT 08:54 | PROVIDERS: ATTEND Physician Assistant | DX: S42.231D 3-part fracture of surgical neck of right humerus, subsequent encounter for fracture with routine healing (principal); R41.841 Cognitive communication deficit; R47.01 Aphasia; Z74.1 Need for assistance with personal care; M62.81 Muscle weakness (generalized); R26.81 Unsteadiness on feet ==

== ENCOUNTER 2022-09-19 10:38 | Observation (INO) | payer MEDICARE, BC ==
[~2022-09-19] VITALS: Ht 170.2 cm; Wt 71.8 kg
[2022-09-19 11:54] LABS: BASO # 0.1 10^3/uL (0.0-0.2); BASO % 1.5 % (0.0-1.0); EOS # 0.8 10^3/uL (0.0-0.5); EOS % 12.4 % (0.0-3.0); HEMATOCRIT 38.1 % (36.0-47.0); HEMOGLOBIN 11.8 g/dl (12.0-15.5); LYMPH # 1.4 10^3/uL (1.5-5.0); LYMPH % 22.6 % (24.0-44.0); MEAN CORPUSCULAR HEMOGLOBIN 30.6 pg (27.0-33.0); MEAN CORPUSCULAR VOLUME 98.7 fl (80.0-96.0); MONO # 0.5 10^3/uL (0.0-0.8); MONO % 8.2 % (2.0-8.0); NEUTROPHILS # 3.4 10^3/uL (1.5-8.5); NEUTROPHILS % 55.1 % (36.0-66.0); PLATELET COUNT, AUTOMATED 200 10^3/uL (150-450); RED BLOOD COUNT 3.86 10^6/uL (4.00-5.40); WHITE BLOOD COUNT 6.1 10^3/uL (4.0-10.0)
[2022-09-19] MEDS ORDERED: ISOVUE-370 76% 100ML VIAL As Ordered ONE (12:06)
[2022-09-19 12:15] LABS: INR 1.25
[2022-09-19 12:16] LABS: PARTIAL THROMBOPLASTIN TIME 34.5 SECONDS (24.8-34.2)
[2022-09-19 12:20] LABS: CK-MB VALUE MASS 4.7 NG/ML (<3.6)
[2022-09-19 12:29] LABS: RSV AMPLIFICATION NEGATIVE (NEGATIVE)
[2022-09-19] MEDS ORDERED: FURO20TA2 PO (14:03)
[2022-09-19] MEDS ORDERED: VITA100093 PO (14:03)
[2022-09-19] MEDS ORDERED: SLOWTAB2 PO (14:03)
[2022-09-19] MEDS ORDERED: XARE20TA PO (14:03)
[2022-09-19] MEDS ORDERED: BOSWPOW MC (14:03)
[2022-09-19] MEDS ORDERED: TRAM50TA2 PO (14:03)
[2022-09-19] MEDS ORDERED: ATOR80TA59 PO (14:03)
[2022-09-19] MEDS ORDERED: VITA500C24 PO (14:03)
[2022-09-19] MEDS ORDERED: TUME1CAP PO (14:03)
[2022-09-19] MEDS ORDERED: HOME MED LIST COMPLETE! XX SCH (14:15)
[2022-09-19 16:35] VITALS: BP 157/72
[2022-09-19] MEDS ORDERED: RIVAROXABAN 20MG TAB (XARELTO) PO SCH (18:00)
[2022-09-19] MEDS ORDERED: SODIUM CHLORIDE 0.9% INJ 10 ML SYR IV PRN (18:15)
[2022-09-19 19:57] VITALS: BP 129/76
[2022-09-19] MEDS: ASCORBIC ACID 500 MG TAB PO SCH (20:10)
[2022-09-19] MEDS: OMEPRAZOLE 20MG CAP PO SCH (20:10)
[2022-09-20 00:02] VITALS: BP 107/62
[2022-09-20 04:03] VITALS: BP 112/58
[2022-09-20 05:43] LABS: BASO # 0.1 10^3/uL (0.0-0.2); BASO % 1.4 % (0.0-1.0); EOS # 0.9 10^3/uL (0.0-0.5); EOS % 13.6 % (0.0-3.0); HEMATOCRIT 37.1 % (36.0-47.0); HEMOGLOBIN 11.8 g/dl (12.0-15.5); LYMPH # 1.9 10^3/uL (1.5-5.0); LYMPH % 27.9 % (24.0-44.0); MEAN CORPUSCULAR HEMOGLOBIN 31.2 pg (27.0-33.0); MEAN CORPUSCULAR HGB CONC 31.8 g/dl (32.0-36.5); MEAN CORPUSCULAR VOLUME 98.1 fl (80.0-96.0); MONO # 0.6 10^3/uL (0.0-0.8); MONO % 9.7 % (2.0-8.0); NEUTROPHILS # 3.1 10^3/uL (1.5-8.5); NEUTROPHILS % 47.1 % (36.0-66.0); PLATELET COUNT, AUTOMATED 201 10^3/uL (150-450); RED BLOOD COUNT 3.78 10^6/uL (4.00-5.40); WHITE BLOOD COUNT 6.6 10^3/uL (4.0-10.0)
[2022-09-20] MEDS ORDERED: SODIUM CHLORIDE 0.9% INJ 10 ML SYR IV SCH (06:00)
[2022-09-20 06:04] LABS: BLOOD UREA NITROGEN 24 MG/DL (9-23); CALCIUM LEVEL 9.3 MG/DL (8.3-10.6); CARBON DIOXIDE LEVEL 26 MMOL/L (20-31); CHLORIDE LEVEL 108 MMOL/L (98-107); CREATININE FOR GFR 0.71 MG/DL (0.55-1.30); GLOMERULAR FILTRATION RATE > 60.0 (>45); GLUCOSE, FASTING 100 MG/DL (74-106); POTASSIUM SERUM 4.1 MMOL/L (3.5-5.1); SODIUM LEVEL 141 MMOL/L (136-145)
[2022-09-20 07:48] LABS: CHOLESTEROL LEVEL 131 MG/DL (<200); CHOLESTEROL RISK RATIO 3.57 (<5); HDL CHOLESTEROL 36.6 MG/DL (>40); LDL CHOLESTEROL 73.8 MG/DL (<100); NON-HDL-C 94.4 MG/DL; TRIGLYCERIDES LEVEL 103 MG/DL (<150)
[2022-09-20 07:55] VITALS: BP 142/83
[2022-09-20 08:37] LABS: HEMOGLOBIN A1c 5.2 % (4.0-6.0)
[2022-09-20] MEDS: OMEPRAZOLE 20MG CAP PO SCH (08:37)
[2022-09-20] MEDS: ASCORBIC ACID 500 MG TAB PO SCH (08:37)
[2022-09-20] MEDS ORDERED: SPIRONOLACTONE 12.5MG PER 1/2 TABLET PO SCH (09:00)
[2022-09-20] MEDS ORDERED: ATORVASTATIN 20 MG TAB PO SCH (09:00)
[2022-09-20] MEDS ORDERED: amLODIPine 5 MG TAB PO SCH (09:00)
[2022-09-20 11:52] VITALS: BP 145/77
[2022-09-20] MEDS ORDERED: ASPI81TA26 PO (12:15)
== END 2022-09-20 14:55 | disposition home or self-care (01) ==
LOC: M ED 10:38 → M ED INP 14:33 → ENRESERV 15:00 → M PCU 16:40
PROVIDERS: ADMIT Internal Medicine Nephrology; ATTEND Internal Medicine Nephrology
DX: R47.01 Aphasia (principal); Z86.73 Personal history of transient ischemic attack (TIA), and cerebral infarction without residual deficits; C54.1 Malignant neoplasm of endometrium; Z92.21 Personal history of antineoplastic chemotherapy; Z79.899 Other long term (current) drug therapy; Z91.040 Latex allergy status; Z88.2 Allergy status to sulfonamides
CPT/HCPCS: 36415; 70450; 70551; 80047; 80048; 80061; 82140; 82550; 82553; 83036; 84443; 84484; 85025; 85610; 85730; 86850; 86900; 86901; 87631; 93005; 93041; 93880; 94760; 96105; 96374; 97161; 97530; 99285; G0378

== ENCOUNTER 2022-10-06 11:30 | Outpatient (RCR) | payer MEDICARE, BC ==
[~2022-10-06 11:30] MED LIST changes: +ASPI81TA26 PO; +BOSWPOW MC; +FURO20TA2 PO; +SLOWTAB2 PO; +TUME1CAP PO; +VITA100093 PO; +VITA500C24 PO; +XARE20TA PO
== END 2022-10-07 ==
LOC: M OT 11:30
PROVIDERS: ATTEND Physician Assistant
DX: M62.81 Muscle weakness (generalized) (principal); R26.81 Unsteadiness on feet; R41.841 Cognitive communication deficit; R47.01 Aphasia; Z74.1 Need for assistance with personal care

== ENCOUNTER 2022-10-11 07:52 | Emergency (ER) | payer MEDICARE, BC ==
[~2022-10-11] VITALS: Ht 170.2 cm; Wt 67.9 kg
[2022-10-11] MEDS ORDERED: CAND4TAB7 PO (08:16)
[2022-10-11] MEDS ORDERED: ELIQ5TAB PO (08:16)
[2022-10-11] MEDS ORDERED: traMADol 50 MG TAB PO ONE (08:40)
[2022-10-11] MEDS ORDERED: ONDANSETRON 4MG ORAL DISINTEGRATING TAB PO ONE (08:40)
[2022-10-11 11:45] VITALS: BP 133/72
== END 2022-10-11 11:59 | disposition home or self-care (01) ==
LOC: M ED 07:52
DX: R51.9 Headache, unspecified (principal); I10 Essential (primary) hypertension; E78.5 Hyperlipidemia, unspecified; K21.9 Gastro-esophageal reflux disease without esophagitis; Z86.73 Personal history of transient ischemic attack (TIA), and cerebral infarction without residual deficits; Z79.899 Other long term (current) drug therapy; Z88.2 Allergy status to sulfonamides; Z91.040 Latex allergy status

== ENCOUNTER → 2022-10-13 | Outpatient (CLI) | payer MEDICARE, BC ==
[~2022-10-13] MED LIST changes: +CAND4TAB7 PO; +ELIQ5TAB PO; +SODIUM CHLORIDE 0.9% INJ 10 ML SYR IV PRN
== END ==
LOC: M ONCR 13:56
PROVIDERS: ATTEND Internal Medicine Cardiovascular Disease
DX: Z09 Encounter for follow-up examination after completed treatment for conditions other than malignant neoplasm (principal); I10 Essential (primary) hypertension
CPT/HCPCS: 36592; 80048; J1642

== ENCOUNTER → 2022-10-13 | Outpatient (REF) | payer MEDICARE, BC ==
[~2022-10-13] MED LIST changes: -SODIUM CHLORIDE 0.9% INJ 10 ML SYR IV PRN
[2022-10-13 14:52] LABS: BLOOD UREA NITROGEN 15 MG/DL (9-23); CALCIUM LEVEL 8.9 MG/DL (8.3-10.6); CARBON DIOXIDE LEVEL 29 MMOL/L (20-31); CHLORIDE LEVEL 106 MMOL/L (98-107); CREATININE FOR GFR 0.67 MG/DL (0.55-1.30); GLOMERULAR FILTRATION RATE > 60.0 (>45); GLUCOSE, FASTING 84 MG/DL (74-106); SODIUM LEVEL 140 MMOL/L (136-145)
== END ==
LOC: M LAB REF 14:04
PROVIDERS: ATTEND Internal Medicine Cardiovascular Disease
DX: I10 Essential (primary) hypertension (principal); Z09 Encounter for follow-up examination after completed treatment for conditions other than malignant neoplasm

== ENCOUNTER 2022-11-03 10:30 | Outpatient (RCR) | payer MEDICARE, BC | END 2022-11-06 | LOC: M OT 10:30 | PROVIDERS: ATTEND Physician Assistant | DX: R41.841 Cognitive communication deficit (principal); R47.01 Aphasia; Z74.1 Need for assistance with personal care; M62.81 Muscle weakness (generalized); R26.81 Unsteadiness on feet; S42.231D 3-part fracture of surgical neck of right humerus, subsequent encounter for fracture with routine healing ==

== ENCOUNTER → 2022-11-04 | Outpatient (CLI) | payer MEDICARE, BC | LOC: M WUC 13:34 | PROVIDERS: ATTEND Internal Medicine | DX: R06.00 Dyspnea, unspecified (principal) ==

== ENCOUNTER 2022-11-24 10:27 | Outpatient (RCR) | payer MEDICARE, BC | END 2022-12-07 | LOC: M OT 10:27 | PROVIDERS: ATTEND Physician Assistant | DX: R41.841 Cognitive communication deficit (principal); R47.01 Aphasia; Z74.1 Need for assistance with personal care; M62.81 Muscle weakness (generalized); R26.81 Unsteadiness on feet; S42.231D 3-part fracture of surgical neck of right humerus, subsequent encounter for fracture with routine healing ==

== ENCOUNTER 2023-01-05 09:36 | Outpatient (RCR) | payer MEDICARE, BC | END 2023-01-06 | LOC: M PT 09:36 | PROVIDERS: ATTEND Nurse Practitioner Family | DX: C54.1 Malignant neoplasm of endometrium (principal) ==

== ENCOUNTER 2023-02-01 07:45 | Outpatient (RCR) | payer MEDICARE, BC | END 2023-02-06 | LOC: M PT 07:45 | PROVIDERS: ATTEND Nurse Practitioner Family | DX: R26.89 Other abnormalities of gait and mobility (principal) ==

== ENCOUNTER 2023-03-01 07:45 | Outpatient (RCR) | payer MEDICARE, BC ==
[2023-03-08] MEDS ORDERED: PERC5TAB12 PO (17:25)
== END 2023-03-09 ==
LOC: M PT 07:45
PROVIDERS: ATTEND Nurse Practitioner Family
DX: C54.1 Malignant neoplasm of endometrium (principal)

== ENCOUNTER 2023-03-08 12:56 | Emergency (ER) | payer MEDICARE, BC ==
[~2023-03-08] VITALS: Ht 170.2 cm; Wt 68.6 kg
[2023-03-08] MEDS ORDERED: ONDANSETRON 4MG 2ML VIAL IV ONE (14:40)
[2023-03-08] MEDS ORDERED: MORPHINE 2 MG/ML 1ML VIAL IV ONE (14:40)
[2023-03-08] MEDS ORDERED: ISOVUE-370 76% 100ML VIAL As Ordered ONE (15:06)
[2023-03-08 15:07] LABS: BASO # 0.1 10^3/uL (0.0-0.2); BASO % 1.6 % (0.0-1.0); EOS # 0.3 10^3/uL (0.0-0.5); EOS % 7.7 % (0.0-3.0); HEMATOCRIT 39.6 % (36.0-47.0); HEMOGLOBIN 12.7 g/dl (12.0-15.5); LYMPH # 0.9 10^3/uL (1.5-5.0); MEAN CORPUSCULAR HEMOGLOBIN 29.1 pg (27.0-33.0); MEAN CORPUSCULAR HGB CONC 32.1 g/dl (32.0-36.5); MEAN CORPUSCULAR VOLUME 90.8 fl (80.0-96.0); MONO # 0.5 10^3/uL (0.0-0.8); MONO % 10.5 % (2.0-8.0); NEUTROPHILS # 2.5 10^3/uL (1.5-8.5); PLATELET COUNT, AUTOMATED 204 10^3/uL (150-450); RED BLOOD COUNT 4.36 10^6/uL (4.00-5.40); WHITE BLOOD COUNT 4.3 10^3/uL (4.0-10.0)
[2023-03-08 15:37] LABS: RSV AMPLIFICATION NEGATIVE (NEGATIVE)
[2023-03-08 16:10] LABS: ALBUMIN 3.1 G/DL (3.2-5.2); ALKALINE PHOSPHATASE 70 U/L (46-116); ALT/SGPT 15 U/L (7.0-40); AST/SGOT 30 U/L (<34); BILIRUBIN,DIRECT < 0.1 MG/DL (<0.4); BILIRUBIN,TOTAL 0.4 MG/DL (0.3-1.2); BLOOD UREA NITROGEN 18 MG/DL (9-23); CALCIUM LEVEL 8.7 MG/DL (8.3-10.6); CARBON DIOXIDE LEVEL 26 MMOL/L (20-31); CHLORIDE LEVEL 109 MMOL/L (98-107); CREATININE FOR GFR 0.65 MG/DL (0.55-1.30); GLOMERULAR FILTRATION RATE > 60.0 (>45); GLUCOSE, FASTING 96 MG/DL (74-106); LIPASE 80 U/L (12-53); POTASSIUM SERUM 5.4 MMOL/L (3.5-5.1); SODIUM LEVEL 142 MMOL/L (136-145); TOTAL PROTEIN 5.8 G/DL (5.7-8.2)
[2023-03-08] MEDS ORDERED: PERC5TAB12 PO (17:25)
[2023-03-08 18:15] VITALS: BP 158/86; TEMP 99.2; O2SAT 97
== END 2023-03-08 18:17 | disposition home or self-care (01) ==
LOC: M ED 12:56
DX: S22.080A Wedge compression fracture of T11-T12 vertebra, initial encounter for closed fracture (principal); I88.8 Other nonspecific lymphadenitis; I10 Essential (primary) hypertension; E78.5 Hyperlipidemia, unspecified; Z86.73 Personal history of transient ischemic attack (TIA), and cerebral infarction without residual deficits; Z85.42 Personal history of malignant neoplasm of other parts of uterus; Z79.01 Long term (current) use of anticoagulants; Z79.899 Other long term (current) drug therapy; Z88.2 Allergy status to sulfonamides; Z91.040 Latex allergy status
CPT/HCPCS: 74177; 80047; 80048; 80076; 81001; 83605; 83690; 85025; 87631; 96374; 96375; 99284; J2405; Q9967

== ENCOUNTER → 2023-05-23 | Outpatient (CLI) | payer BC, MEDICARE ==
[~2023-05-23] MED LIST changes: +EZET10TA58 PO; +PERC5TAB12 PO; -ZETI10TA16 PO
== END ==
LOC: M WHC 12:45
PROVIDERS: ATTEND Orthopaedic Surgery
DX: S22.080A Wedge compression fracture of T11-T12 vertebra, initial encounter for closed fracture (principal); X58.XXXA Exposure to other specified factors, initial encounter; Y92.9 Unspecified place or not applicable; Y93.9 Activity, unspecified; Y99.9 Unspecified external cause status; M81.0 Age-related osteoporosis without current pathological fracture

== ENCOUNTER 2023-05-28 05:27 | Emergency (ER) | payer MEDICARE ==
[~2023-05-28] VITALS: Ht 170.2 cm; Wt 71.4 kg
[2023-05-28] MEDS ORDERED: ACETAMINOPHEN *IV* 1,000 MG in IV 1 EA IV ONE (06:35)
[2023-05-28] MEDS ORDERED: NS 500 ML IV ONE (06:35)
[2023-05-28 07:23] LABS: BASO # 0.1 10^3/uL (0.0-0.2); EOS # 0.3 10^3/uL (0.0-0.5); EOS % 7.1 % (0.0-3.0); HEMATOCRIT 38.7 % (36.0-47.0); HEMOGLOBIN 12.8 g/dl (12.0-15.5); LYMPH # 0.7 10^3/uL (1.5-5.0); LYMPH % 20.7 % (24.0-44.0); MEAN CORPUSCULAR HEMOGLOBIN 30.5 pg (27.0-33.0); MEAN CORPUSCULAR HGB CONC 33.1 g/dl (32.0-36.5); MEAN CORPUSCULAR VOLUME 92.4 fl (80.0-96.0); MONO # 0.4 10^3/uL (0.0-0.8); MONO % 10.5 % (2.0-8.0); NEUTROPHILS # 2.1 10^3/uL (1.5-8.5); NEUTROPHILS % 59.7 % (36.0-66.0); PLATELET COUNT, AUTOMATED 194 10^3/uL (150-450); RED BLOOD COUNT 4.19 10^6/uL (4.00-5.40); WHITE BLOOD COUNT 3.5 10^3/uL (4.0-10.0)
[2023-05-28 07:34] LABS: INR 1.01; PARTIAL THROMBOPLASTIN TIME 27.5 SECONDS (24.8-34.2)
[2023-05-28 07:51] LABS: ALBUMIN 3.6 G/DL (3.2-5.2); ALKALINE PHOSPHATASE 83 U/L (46-116); ALT/SGPT 27 U/L (7.0-40); AST/SGOT 35 U/L (<34); BILIRUBIN,DIRECT 0.1 MG/DL (<0.4); BILIRUBIN,TOTAL 0.7 MG/DL (0.3-1.2); BLOOD UREA NITROGEN 20 MG/DL (9-23); CALCIUM LEVEL 9.2 MG/DL (8.3-10.6); CARBON DIOXIDE LEVEL 24 MMOL/L (20-31); CHLORIDE LEVEL 110 MMOL/L (98-107); CREATININE FOR GFR 0.65 MG/DL (0.55-1.30); GLOMERULAR FILTRATION RATE > 60.0 (>45); GLUCOSE, FASTING 88 MG/DL (74-106); LIPASE 46 U/L (12-53); POTASSIUM SERUM 4.9 MMOL/L (3.5-5.1); SODIUM LEVEL 143 MMOL/L (136-145); TOTAL PROTEIN 6.6 G/DL (5.7-8.2)
[2023-05-28] MEDS ORDERED: ISOVUE-370 76% 100ML VIAL As Ordered ONE (08:01)
[2023-05-28] MEDS ORDERED: MIRA3350 PO (10:32)
[2023-05-28] MEDS ORDERED: SIME180C25 PO (10:32)
[2023-05-28 10:48] VITALS: BP 164/98; TEMP 98.1; O2SAT 99
== END 2023-05-28 11:18 | disposition home or self-care (01) ==
LOC: M ED 05:27
DX: R10.9 Unspecified abdominal pain (principal); R14.3 Flatulence; K40.90 Unilateral inguinal hernia, without obstruction or gangrene, not specified as recurrent; Z86.73 Personal history of transient ischemic attack (TIA), and cerebral infarction without residual deficits; I10 Essential (primary) hypertension; F32.A Depression, unspecified; Z88.2 Allergy status to sulfonamides; Z91.040 Latex allergy status; D73.4 Cyst of spleen; Z79.899 Other long term (current) drug therapy; Z79.01 Long term (current) use of anticoagulants
CPT/HCPCS: 74177; 80048; 80076; 81001; 83605; 83690; 85025; 85610; 85730; 96374; 99284; J0131; Q9967

== ENCOUNTER → 2023-05-31 | Outpatient (CLI) | payer MEDICARE, BC ==
[~2023-05-31] MED LIST changes: +MIRA3350 PO; +PROHANCE 279.3MG/ML 15ML VIAL ONE; +SIME180C25 PO
== END ==
LOC: M PLAIMG 12:18
PROVIDERS: ATTEND Orthopaedic Surgery
DX: S22.080A Wedge compression fracture of T11-T12 vertebra, initial encounter for closed fracture (principal); Y93.9 Activity, unspecified; Y92.9 Unspecified place or not applicable
CPT/HCPCS: 72157; A9576

== ENCOUNTER 2023-07-05 07:00 | Outpatient (RCR) | payer MEDICARE, BC ==
[~2023-07-05 07:00] MED LIST changes: -PROHANCE 279.3MG/ML 15ML VIAL ONE
== END 2023-07-09 ==
LOC: M PT 07:00
PROVIDERS: ATTEND Orthopaedic Surgery
DX: M54.50 Low back pain, unspecified (principal)

== ENCOUNTER 2023-08-08 07:00 | Outpatient (RCR) | payer MEDICARE, BC | END 2023-08-09 | LOC: M PT 07:00 | PROVIDERS: ATTEND Orthopaedic Surgery | DX: M54.50 Low back pain, unspecified (principal) ==

== ENCOUNTER 2023-08-24 07:40 | Outpatient (RCR) | payer BC, MEDICARE | END 2023-09-07 | LOC: M PT 07:40 | PROVIDERS: ATTEND Orthopaedic Surgery | DX: M54.50 Low back pain, unspecified (principal) ==

== ENCOUNTER → 2024-01-04 | Outpatient (CLI) | payer MEDICARE ==
[~2024-01-04] MED LIST changes: +ISOVUE-370 76% 100ML VIAL As Ordered ONE; +ONDA-282 PO; +ONDA-284 PO; -ONDA4TAB6 PO; -ONDA8TAB8 PO
== END ==
LOC: M RAD 13:20
PROVIDERS: ATTEND Internal Medicine
DX: R06.00 Dyspnea, unspecified (principal); D73.4 Cyst of spleen
CPT/HCPCS: 71260; Q9967

== ENCOUNTER → 2024-01-23 | Outpatient (CLI) | payer MEDICARE ==
[~2024-01-23] MED LIST changes: -ISOVUE-370 76% 100ML VIAL As Ordered ONE
== END ==
LOC: M LAB 15:17
PROVIDERS: ATTEND Physician Assistant
DX: N39.0 Urinary tract infection, site not specified (principal)

== ENCOUNTER 2024-02-11 13:51 | Inpatient (IN) | payer MEDICARE ==
[~2024-02-11] VITALS: Ht 170.2 cm; Wt 82.7 kg
[2024-02-11] MEDS: ACETAMINOPHEN 500 MG TAB PO ONE (15:10)
[2024-02-11] MEDS ORDERED: HYDROcodone/APAP LIQUID 7.5-325MG 15ML UDC (LORTAB ELIXIR) PO ONE (15:35)
[2024-02-11] MEDS: MORPHINE 2 MG/ML 1ML VIAL IM ONE (15:59)
[2024-02-11] MEDS ORDERED: CODE30TA PO (18:13)
[2024-02-11 19:53] LABS: BASO % 0.5 % (0.0-1.0); EOS # 0.1 10^3/uL (0.0-0.5); EOS % 0.8 % (0.0-3.0); HEMATOCRIT 41.3 % (36.0-47.0); HEMOGLOBIN 13.7 g/dl (12.0-15.5); LYMPH # 0.7 10^3/uL (1.5-5.0); MEAN CORPUSCULAR HGB CONC 33.2 g/dl (32.0-36.5); MEAN CORPUSCULAR VOLUME 93.4 fl (80.0-96.0); MONO # 0.7 10^3/uL (0.0-0.8); MONO % 8.7 % (2.0-8.0); NEUTROPHILS % 80.6 % (36.0-66.0); PLATELET COUNT, AUTOMATED 191 10^3/uL (150-450); RED BLOOD COUNT 4.42 10^6/uL (4.00-5.40); WHITE BLOOD COUNT 7.5 10^3/uL (4.0-10.0)
[2024-02-11 20:06] LABS: INR 1.04; PARTIAL THROMBOPLASTIN TIME 24.1 SECONDS (24.8-34.2); PROTHROMBIN TIME 13.3 SECONDS (12.5-14.5)
[2024-02-11 20:18] LABS: ALBUMIN 3.9 G/DL (3.2-5.2); ALKALINE PHOSPHATASE 87 U/L (46-116); ALT/SGPT 23 U/L (7.0-40); AST/SGOT 26 U/L (<34); BILIRUBIN,TOTAL 0.6 MG/DL (0.3-1.2); BLOOD UREA NITROGEN 18 MG/DL (9-23); CALCIUM LEVEL 9.1 MG/DL (8.3-10.6); CARBON DIOXIDE LEVEL 24 MMOL/L (20-31); CHLORIDE LEVEL 111 MMOL/L (98-107); CREATININE FOR GFR 0.68 MG/DL (0.55-1.30); GLOMERULAR FILTRATION RATE > 60.0 (>45); GLUCOSE, FASTING 133 MG/DL (74-106); POTASSIUM SERUM 4.2 MMOL/L (3.5-5.1); SODIUM LEVEL 142 MMOL/L (136-145); TOTAL PROTEIN 6.6 G/DL (5.7-8.2)
[2024-02-11] MEDS ORDERED: [UNRECOGNIZED DRUG - OTHER] PO (20:33)
[2024-02-11] MEDS ORDERED: HOME MED LIST COMPLETE! XX SCH (20:35)
[2024-02-12] MEDS: MORPHINE 2 MG/ML 1ML VIAL IV ONE (00:18)
[2024-02-12] MEDS ORDERED: MOM 30ML SUSPENSION UDC PO PRN (00:40)
[2024-02-12] MEDS ORDERED: MAALOX 30 ML SUSP *UDC PO PRN (00:40)
[2024-02-12 06:39] LABS: HEMOGLOBIN 12.8 g/dl (12.0-15.5); MEAN CORPUSCULAR HEMOGLOBIN 30.9 pg (27.0-33.0); MEAN CORPUSCULAR HGB CONC 33.7 g/dl (32.0-36.5); MEAN CORPUSCULAR VOLUME 91.8 fl (80.0-96.0); PLATELET COUNT, AUTOMATED 170 10^3/uL (150-450); RED BLOOD COUNT 4.14 10^6/uL (4.00-5.40); WHITE BLOOD COUNT 4.9 10^3/uL (4.0-10.0)
[2024-02-12 06:55] LABS: ALBUMIN 3.6 G/DL (3.2-5.2); ALKALINE PHOSPHATASE 85 U/L (46-116); ALT/SGPT 19 U/L (7.0-40); AST/SGOT 16 U/L (<34); BILIRUBIN,TOTAL 1.1 MG/DL (0.3-1.2); BLOOD UREA NITROGEN 12 MG/DL (9-23); CALCIUM LEVEL 9.1 MG/DL (8.3-10.6); CARBON DIOXIDE LEVEL 25 MMOL/L (20-31); CHLORIDE LEVEL 108 MMOL/L (98-107); CREATININE FOR GFR 0.61 MG/DL (0.55-1.30); GLOMERULAR FILTRATION RATE > 60.0 (>45); GLUCOSE, FASTING 114 MG/DL (74-106); POTASSIUM SERUM 3.6 MMOL/L (3.5-5.1); SODIUM LEVEL 141 MMOL/L (136-145); TOTAL PROTEIN 6.2 G/DL (5.7-8.2)
[2024-02-12] MEDS: APIXABAN 5 MG TAB (ELIQUIS) PO SCH (07:46)
[2024-02-12] MEDS: VITAMIN D 1,000 INTERNATIONAL UNITS TABLET PO SCH (07:46)
[2024-02-12] MEDS: ASCORBIC ACID 500 MG TAB PO SCH (07:47)
[2024-02-12] MEDS: PERCOCET 5MG/325MG TAB PO PRN (07:47)
[2024-02-12] MEDS: DOCUSATE SODIUM 100MG CAPSULE PO SCH (07:47)
[2024-02-12 08:05] VITALS: BP 171/82; TEMP 98; O2SAT 96
[2024-02-12] MEDS: ONDANSETRON 4MG 2ML VIAL IV PRN (09:14)
[2024-02-12 14:16] VITALS: BP 133/72
[2024-02-12 14:38] VITALS: BP 136/72; TEMP 97.7; O2SAT 96
[2024-02-12 19:20] VITALS: BP 124/72; TEMP 97.5; O2SAT 91
[2024-02-13 04:00] VITALS: BP 147/73; TEMP 97.9; O2SAT 93
[2024-02-13 06:06] LABS: HEMATOCRIT 41.4 % (36.0-47.0); HEMOGLOBIN 13.5 g/dl (12.0-15.5); MEAN CORPUSCULAR HEMOGLOBIN 30.7 pg (27.0-33.0); MEAN CORPUSCULAR HGB CONC 32.6 g/dl (32.0-36.5); MEAN CORPUSCULAR VOLUME 94.1 fl (80.0-96.0); PLATELET COUNT, AUTOMATED 187 10^3/uL (150-450); WHITE BLOOD COUNT 4.5 10^3/uL (4.0-10.0)
[2024-02-13 06:40] LABS: ALBUMIN 3.6 G/DL (3.2-5.2); ALKALINE PHOSPHATASE 87 U/L (46-116); ALT/SGPT 18 U/L (7.0-40); AST/SGOT 13 U/L (<34); BILIRUBIN,TOTAL 0.8 MG/DL (0.3-1.2); BLOOD UREA NITROGEN 12 MG/DL (9-23); CALCIUM LEVEL 9.5 MG/DL (8.3-10.6); CARBON DIOXIDE LEVEL 30 MMOL/L (20-31); CHLORIDE LEVEL 106 MMOL/L (98-107); CREATININE FOR GFR 0.81 MG/DL (0.55-1.30); GLOMERULAR FILTRATION RATE > 60.0 (>45); GLUCOSE, FASTING 101 MG/DL (74-106); MAGNESIUM LEVEL 2.2 MG/DL (1.8-2.4); SODIUM LEVEL 142 MMOL/L (136-145); TOTAL PROTEIN 6.7 G/DL (5.7-8.2)
[2024-02-13] MEDS: MIRALAX *UNIT DOSE* 17GM PACKET PO PRN (10:02)
[2024-02-13 12:00] VITALS: BP 124/67; TEMP 97.7; O2SAT 92
[2024-02-13] MEDS: MORPHINE 2 MG/ML 1ML VIAL IV PRN (15:04)
[2024-02-13] MEDS ORDERED: METOCLOPRAMIDE INJ 10MG/2ML VIAL IV PRN (15:45)
[2024-02-13 20:00] VITALS: BP 140/78; TEMP 98.1; O2SAT 96
[2024-02-13] MEDS: ACETAMINOPHEN TAB 650MG DOSE (2X325MG) PO PRN (21:02)
[2024-02-13] MEDS: SENOKOT S TAB PO PRN (21:02)
[2024-02-13] MEDS: ONDANSETRON 4MG 2ML VIAL IV PRN (21:02)
[2024-02-13] MEDS: PERCOCET 5MG/325MG TAB PO PRN (23:30)
[2024-02-14 04:00] VITALS: BP 149/74; TEMP 97.3; O2SAT 96
[2024-02-14 12:00] VITALS: BP 146/80; TEMP 97.5; O2SAT 94
[2024-02-14 21:00] VITALS: BP 129/78; TEMP 97.9; O2SAT 93
[2024-02-15 04:00] VITALS: BP 135/67; TEMP 97.7; O2SAT 98
[2024-02-15] MEDS: MAGNESIUM OXIDE 400MG TAB (MAG-OX) PO SCH (11:25)
[2024-02-15 12:09] VITALS: BP 151/75; TEMP 97.5; O2SAT 94
[2024-02-15] MEDS: BISACODYL 10MG SUPP PR PRN (14:48)
[2024-02-15 20:26] VITALS: BP 167/78; TEMP 97.9; O2SAT 95
[2024-02-16 03:54] VITALS: BP 108/53; TEMP 97.9; O2SAT 93
[2024-02-16 09:45] LABS: BASO # 0.1 10^3/uL (0.0-0.2); BASO % 0.8 % (0.0-1.0); EOS # 0.1 10^3/uL (0.0-0.5); EOS % 1.8 % (0.0-3.0); HEMATOCRIT 37.5 % (36.0-47.0); HEMOGLOBIN 12.4 g/dl (12.0-15.5); LYMPH # 0.5 10^3/uL (1.5-5.0); LYMPH % 8.6 % (24.0-44.0); MEAN CORPUSCULAR HEMOGLOBIN 31.2 pg (27.0-33.0); MEAN CORPUSCULAR HGB CONC 33.1 g/dl (32.0-36.5); MEAN CORPUSCULAR VOLUME 94.2 fl (80.0-96.0); MONO # 0.5 10^3/uL (0.0-0.8); MONO % 7.9 % (2.0-8.0); NEUTROPHILS # 4.9 10^3/uL (1.5-8.5); NEUTROPHILS % 80.6 % (36.0-66.0); PLATELET COUNT, AUTOMATED 204 10^3/uL (150-450); RED BLOOD COUNT 3.98 10^6/uL (4.00-5.40); WHITE BLOOD COUNT 6.1 10^3/uL (4.0-10.0)
[2024-02-16 10:05] LABS: BLOOD UREA NITROGEN 21 MG/DL (9-23); CALCIUM LEVEL 8.9 MG/DL (8.3-10.6); CARBON DIOXIDE LEVEL 26 MMOL/L (20-31); CHLORIDE LEVEL 104 MMOL/L (98-107); CREATININE FOR GFR 0.75 MG/DL (0.55-1.30); GLOMERULAR FILTRATION RATE > 60.0 (>45); GLUCOSE, FASTING 215 MG/DL (74-106); POTASSIUM SERUM 4.3 MMOL/L (3.5-5.1); SODIUM LEVEL 137 MMOL/L (136-145)
[2024-02-16 12:00] VITALS: BP 106/58; TEMP 97.5; O2SAT 94
[2024-02-16 20:00] VITALS: BP 106/53; TEMP 97.7; O2SAT 92
[2024-02-16] MEDS: MIRALAX *UNIT DOSE* 17GM PACKET PO PRN (21:25)
[2024-02-17 04:00] VITALS: BP 119/63; TEMP 97.5; O2SAT 94
[2024-02-17 20:00] VITALS: BP 140/76; TEMP 97.7; O2SAT 97
[2024-02-18 04:00] VITALS: BP 130/59; TEMP 97.7; O2SAT 98
[2024-02-18] MEDS: LIDOCAINE 5% (LIDODERM) PATCH TD SCH (09:39)
[2024-02-18 12:00] VITALS: BP 123/71; TEMP 98.1; O2SAT 99
[2024-02-18 20:09] VITALS: BP 148/81; TEMP 97.7; O2SAT 96
[2024-02-19 05:00] VITALS: BP 130/62; TEMP 97.5; O2SAT 97
[2024-02-19 06:41] LABS: BLOOD UREA NITROGEN 20 MG/DL (9-23); CALCIUM LEVEL 9.2 MG/DL (8.3-10.6); CARBON DIOXIDE LEVEL 28 MMOL/L (20-31); CHLORIDE LEVEL 108 MMOL/L (98-107); CREATININE FOR GFR 0.72 MG/DL (0.55-1.30); GLOMERULAR FILTRATION RATE > 60.0 (>45); GLUCOSE, FASTING 98 MG/DL (74-106); MAGNESIUM LEVEL 2.2 MG/DL (1.8-2.4); POTASSIUM SERUM 4.1 MMOL/L (3.5-5.1); SODIUM LEVEL 141 MMOL/L (136-145)
[2024-02-19] MEDS ORDERED: PERCOCET PO (10:10)
[2024-02-19] MEDS ORDERED: LIDO5TD TD (10:10)
== END 2024-02-19 11:30 | DRG 536 ==
LOC: EDBD 13:51 → M ED 13:51 → M ED INP 02-12 00:36 → M MSPAV 02-12 14:40
PROVIDERS: ADMIT Family Medicine; ATTEND Student in an Organized Health Care Education/Training Program
DX: S32.511A Fracture of superior rim of right pubis, initial encounter for closed fracture (principal); S32.10XA Unspecified fracture of sacrum, initial encounter for closed fracture; S32.591A Other specified fracture of right pubis, initial encounter for closed fracture; Z85.42 Personal history of malignant neoplasm of other parts of uterus; S40.011A Contusion of right shoulder, initial encounter; Z92.21 Personal history of antineoplastic chemotherapy; W19.XXXA Unspecified fall, initial encounter; Y92.009 Unspecified place in unspecified non-institutional (private) residence as the place of occurrence of the external cause; Y93.9 Activity, unspecified; E78.5 Hyperlipidemia, unspecified; I10 Essential (primary) hypertension; H40.9 Unspecified glaucoma; M54.9 Dorsalgia, unspecified; F32.A Depression, unspecified; Z86.73 Personal history of transient ischemic attack (TIA), and cerebral infarction without residual deficits; Z90.79 Acquired absence of other genital organ(s); Z79.01 Long term (current) use of anticoagulants; Z79.899 Other long term (current) drug therapy; Z88.2 Allergy status to sulfonamides; Z88.1 Allergy status to other antibiotic agents; Z91.040 Latex allergy status; K59.00 Constipation, unspecified; E67.3 Hypervitaminosis D

== ENCOUNTER → 2024-02-21 | Outpatient (REF) ==
[~2024-02-21] MED LIST changes: +CODE30TA PO; +LIDO5TD TD; +PERCOCET PO; +[UNRECOGNIZED DRUG - OTHER] PO
[2024-02-21 09:09] LABS: HEMATOCRIT 41.6 % (36.0-47.0); HEMOGLOBIN 13.9 g/dl (12.0-15.5); MEAN CORPUSCULAR HEMOGLOBIN 30.7 pg (27.0-33.0); MEAN CORPUSCULAR HGB CONC 33.4 g/dl (32.0-36.5); MEAN CORPUSCULAR VOLUME 91.8 fl (80.0-96.0); PLATELET COUNT, AUTOMATED 294 10^3/uL (150-450); RED BLOOD COUNT 4.53 10^6/uL (4.00-5.40); WHITE BLOOD COUNT 4.6 10^3/uL (4.0-10.0)
[2024-02-21 09:40] LABS: BLOOD UREA NITROGEN 16 MG/DL (9-23); CALCIUM LEVEL 9.7 MG/DL (8.3-10.6); CARBON DIOXIDE LEVEL 25 MMOL/L (20-31); CHLORIDE LEVEL 108 MMOL/L (98-107); CREATININE FOR GFR 0.71 MG/DL (0.55-1.30); GLOMERULAR FILTRATION RATE > 60.0 (>45); GLUCOSE, FASTING 98 MG/DL (74-106); POTASSIUM SERUM 4.4 MMOL/L (3.5-5.1); SODIUM LEVEL 139 MMOL/L (136-145)
== END ==
PROVIDERS: ATTEND Physician Assistant
DX: S32.511D Fracture of superior rim of right pubis, subsequent encounter for fracture with routine healing (principal)

== ENCOUNTER → 2024-02-28 | Outpatient (REF) ==
[2024-02-28 10:18] LABS: HEMATOCRIT 39.9 % (36.0-47.0); HEMOGLOBIN 12.9 g/dl (12.0-15.5); MEAN CORPUSCULAR HEMOGLOBIN 30.7 pg (27.0-33.0); MEAN CORPUSCULAR HGB CONC 32.3 g/dl (32.0-36.5); PLATELET COUNT, AUTOMATED 343 10^3/uL (150-450); WHITE BLOOD COUNT 3.9 10^3/uL (4.0-10.0)
[2024-02-28 10:45] LABS: BLOOD UREA NITROGEN 11 MG/DL (9-23); CALCIUM LEVEL 9.7 MG/DL (8.3-10.6); CARBON DIOXIDE LEVEL 23 MMOL/L (20-31); CHLORIDE LEVEL 110 MMOL/L (98-107); CREATININE FOR GFR 0.63 MG/DL (0.55-1.30); GLOMERULAR FILTRATION RATE > 60.0 (>39); GLUCOSE, FASTING 166 MG/DL (74-106); SODIUM LEVEL 140 MMOL/L (136-145)
== END ==
PROVIDERS: ATTEND Physician Assistant
DX: S32.511D Fracture of superior rim of right pubis, subsequent encounter for fracture with routine healing (principal); S32.591D Other specified fracture of right pubis, subsequent encounter for fracture with routine healing; S32.10XD Unspecified fracture of sacrum, subsequent encounter for fracture with routine healing

== ENCOUNTER → 2024-03-06 | Outpatient (REF) ==
[2024-03-06 08:02] LABS: HEMATOCRIT 39.4 % (36.0-47.0); HEMOGLOBIN 12.8 g/dl (12.0-15.5); MEAN CORPUSCULAR HGB CONC 32.5 g/dl (32.0-36.5); MEAN CORPUSCULAR VOLUME 95.4 fl (80.0-96.0); PLATELET COUNT, AUTOMATED 289 10^3/uL (150-450); RED BLOOD COUNT 4.13 10^6/uL (4.00-5.40); WHITE BLOOD COUNT 3.3 10^3/uL (4.0-10.0)
[2024-03-06 08:37] LABS: BLOOD UREA NITROGEN 20 MG/DL (9-23); CALCIUM LEVEL 9.4 MG/DL (8.3-10.6); CARBON DIOXIDE LEVEL 28 MMOL/L (20-31); CHLORIDE LEVEL 108 MMOL/L (98-107); CREATININE FOR GFR 0.67 MG/DL (0.55-1.30); GLOMERULAR FILTRATION RATE > 60.0 (>39); GLUCOSE, FASTING 82 MG/DL (74-106); POTASSIUM SERUM 3.8 MMOL/L (3.5-5.1); SODIUM LEVEL 138 MMOL/L (136-145)
== END ==
PROVIDERS: ATTEND Physician Assistant
DX: S32.511D Fracture of superior rim of right pubis, subsequent encounter for fracture with routine healing (principal); S32.591D Other specified fracture of right pubis, subsequent encounter for fracture with routine healing; S32.10XD Unspecified fracture of sacrum, subsequent encounter for fracture with routine healing

== ENCOUNTER → 2024-03-14 | Outpatient (CLI) | payer MEDICARE | LOC: M SOG 07:59 | PROVIDERS: ATTEND Physician Assistant | DX: S32.502D Unspecified fracture of left pubis, subsequent encounter for fracture with routine healing (principal); Y93.9 Activity, unspecified; Y92.9 Unspecified place or not applicable ==

== ENCOUNTER → 2024-03-14 | Outpatient (REF) | PROVIDERS: ATTEND Physician Assistant | DX: S32.511D Fracture of superior rim of right pubis, subsequent encounter for fracture with routine healing (principal); Z53.8 Procedure and treatment not carried out for other reasons ==

== ENCOUNTER 2024-04-04 10:22 | Outpatient (RCR) | payer MEDICARE | END 2024-04-08 | LOC: M PT 10:22 | PROVIDERS: ATTEND Physician Assistant | DX: S32.511D Fracture of superior rim of right pubis, subsequent encounter for fracture with routine healing (principal) ==

== ENCOUNTER → 2024-04-15 | Outpatient (CLI) | payer MEDICARE ==
[~2024-04-15] MED LIST changes: -SIME180C25 PO; +SIME1CAP4 PO
== END ==
LOC: M SOG 07:20
PROVIDERS: ATTEND Physician Assistant
DX: S32.810D Multiple fractures of pelvis with stable disruption of pelvic ring, subsequent encounter for fracture with routine healing (principal)

== ENCOUNTER → 2024-05-09 | Outpatient (RCR) | payer MEDICARE | LOC: M PT 04-09 10:09 | PROVIDERS: ATTEND Physician Assistant | DX: S32.511D Fracture of superior rim of right pubis, subsequent encounter for fracture with routine healing (principal) ==

== ENCOUNTER 2024-06-05 09:15 | Outpatient (RCR) | payer MEDICARE | END 2024-06-08 | LOC: M PT 09:15 | PROVIDERS: ATTEND Physician Assistant | DX: S32.511D Fracture of superior rim of right pubis, subsequent encounter for fracture with routine healing (principal) ==

== ENCOUNTER → 2024-07-09 | Outpatient (RCR) | payer MEDICARE | LOC: M PT 06-11 11:30 | PROVIDERS: ATTEND Physician Assistant | DX: S32.511D Fracture of superior rim of right pubis, subsequent encounter for fracture with routine healing (principal) ==

== ENCOUNTER 2024-07-17 09:55 | Outpatient (RCR) | payer MEDICARE | END 2024-08-09 | LOC: M PT 09:55 | PROVIDERS: ATTEND Physician Assistant | DX: S32.511D Fracture of superior rim of right pubis, subsequent encounter for fracture with routine healing (principal) ==

== ENCOUNTER 2025-04-07 08:21 | Emergency (ER) | payer MEDICARE, SELFPAY ==
[~2025-04-07] VITALS: Ht 170.2 cm; Wt 78.3 kg
[~2025-04-07 08:21] MED LIST changes: -EZET10TA21 PO; +EZET10TA57 PO; +SLOW1TAB3 PO; -SLOWTAB2 PO
[2025-04-07] MEDS ORDERED: TRAM50TA2 (09:29)
[2025-04-07 09:38] LABS: BASO # 0.0 10^3/uL (0.0-0.2); BASO % 0.3 % (0.0-1.0); EOS # 0.0 10^3/uL (0.0-0.5); EOS % 0.0 % (0.0-3.0); LYMPH # 0.7 10^3/uL (1.5-5.0); LYMPH % 6.0 % (24.0-44.0); MONO # 1.7 10^3/uL (0.0-0.8); MONO % 14.7 % (2.0-8.0); NEUTROPHILS # 9.2 10^3/uL (1.5-8.5); NEUTROPHILS % 78.6 % (36.0-66.0); PLATELET COUNT, AUTOMATED 197 10^3/uL (150-450)
[2025-04-07 10:07] LABS: ALT/SGPT 59.0 U/L (7.0-40); AST/SGOT 211.0 U/L (<34); CALCIUM LEVEL 8.5 MG/DL (8.3-10.6); CARBON DIOXIDE LEVEL 24.0 MMOL/L (20-31); CHLORIDE LEVEL 99.0 MMOL/L (98-107); CREATININE FOR GFR 1.71 MG/DL (0.55-1.30); GLOMERULAR FILTRATION RATE 31.6 (>39); POTASSIUM SERUM 3.6 MMOL/L (3.5-5.1); SODIUM LEVEL 134.0 MMOL/L (136-145)
[2025-04-07] MEDS: NS (Normal Saline) 0.9% 1,000 ML IV ONE ×2 (10:21→12:21)
[2025-04-07 10:24] LABS: MAGNESIUM LEVEL 2.2 MG/DL (1.8-2.4)
[2025-04-07 14:21] LABS: INR 1.18
[2025-04-07] MEDS ORDERED: HEPARIN SOD 5000 UNITS/ML 1 ML VIAL/SYRINGE IV PRN (14:40)
[2025-04-07] MEDS: HEPARIN SOD 5000 UNITS/ML 1 ML VIAL/SYRINGE IV ONE (15:16)
[2025-04-07] MEDS: HEPARIN DRIP 25,000 UNITS in IV 1 EA IV SCH (15:19)
[2025-04-07] MEDS: NS 500 ML IV ONE (15:20)
[2025-04-07 16:04] VITALS: BP 105/55; TEMP 99.9; O2SAT 95
[2025-04-07] MEDS: ONDANSETRON 4MG 2ML VIAL IV ONE (16:14)
== END 2025-04-07 16:06 | disposition short-term general hospital (02) ==
LOC: M ED 08:21
DX: I44.2 Atrioventricular block, complete (principal); I25.2 Old myocardial infarction; I10 Essential (primary) hypertension; E78.5 Hyperlipidemia, unspecified; Z86.73 Personal history of transient ischemic attack (TIA), and cerebral infarction without residual deficits; Z95.818 Presence of other cardiac implants and grafts; Z85.42 Personal history of malignant neoplasm of other parts of uterus; Z79.01 Long term (current) use of anticoagulants; Z79.899 Other long term (current) drug therapy; Z88.1 Allergy status to other antibiotic agents; Z88.2 Allergy status to sulfonamides; Z91.040 Latex allergy status
CPT/HCPCS: 71045; 74176; 80048; 80076; 83605; 83690; 83735; 84484; 85025; 85610; 85730; 87040; 93005; 93041; 96361; 96365; 96375; 99285; J2405

== ENCOUNTER → 2025-05-26 | Outpatient (CLI) | payer MEDICARE, OTHER ==
[~2025-05-26] MED LIST changes: +TRAM50TA2
== END ==
LOC: M WHC 09:48
PROVIDERS: ATTEND Nurse Practitioner Family
DX: Z13.820 Encounter for screening for osteoporosis (principal); M81.0 Age-related osteoporosis without current pathological fracture

== ENCOUNTER 2025-06-07 12:37 | Emergency (ER) | payer MEDICARE, OTHER ==
[2025-06-07] MEDS ORDERED: CLOP75TA2 (12:46)
[2025-06-07] MEDS ORDERED: ASPI81CH33 PO (12:47)
[2025-06-07 13:36] LABS: BASO # 0.1 10^3/uL (0.0-0.2); BASO % 1.7 % (0.0-1.0); EOS # 0.1 10^3/uL (0.0-0.5); EOS % 2.2 % (0.0-3.0); LYMPH # 0.8 10^3/uL (1.5-5.0); LYMPH % 19.1 % (24.0-44.0); MONO # 0.4 10^3/uL (0.0-0.8); MONO % 9.8 % (2.0-8.0); NEUTROPHILS # 2.8 10^3/uL (1.5-8.5); NEUTROPHILS % 67.0 % (36.0-66.0); PLATELET COUNT, AUTOMATED 199 10^3/uL (150-450)
[2025-06-07 13:56] LABS: INR 0.93
[2025-06-07 14:14] LABS: ALT/SGPT 29 U/L (7.0-40); AST/SGOT 34 U/L (<34); CALCIUM LEVEL 9.4 MG/DL (8.3-10.6); CARBON DIOXIDE LEVEL 26 MMOL/L (20-31); CHLORIDE LEVEL 105 MMOL/L (98-107); CK-MB VALUE MASS 6.0 NG/ML (<3.6); CREATININE FOR GFR 0.76 MG/DL (0.55-1.30); GLOMERULAR FILTRATION RATE 83.7 (>39); POTASSIUM SERUM 4.6 MMOL/L (3.5-5.1); SODIUM LEVEL 141 MMOL/L (136-145)
[2025-06-07 14:25] LABS: CPK CREATINE PHOSPHOKINASE 136 U/L (34-145); MB/CK RELATIVE INDEX 4.41 (< OR =4)
[2025-06-07] MEDS ORDERED: ISOVUE-370 76% 100 ML VIAL As Ordered ONE (15:03)
[2025-06-07 15:14] LABS: CK-MB VALUE MASS 4.9 NG/ML (<3.6)
[2025-06-07 15:35] LABS: CPK CREATINE PHOSPHOKINASE 120.0 U/L (34-145); MB/CK RELATIVE INDEX 4.08 (< OR =4)
[2025-06-07] MEDS: HEPARIN DRIP 25,000 UNITS in IV 1 EA IV SCH (17:20)
[2025-06-07] MEDS: HEPARIN SOD 5000 UNITS/ML 1 ML VIAL/SYRINGE IV ONE (17:21)
[2025-06-07 17:35] VITALS: BP 196/93
[2025-06-07] MEDS: NITROGLYCERIN 2% OINT 1 GM *U/D* PKT TOP ONE (17:35)
[2025-06-07 17:43] LABS: CK-MB VALUE MASS 5.5 NG/ML (<3.6)
[2025-06-07 17:47] LABS: CPK CREATINE PHOSPHOKINASE 112.0 U/L (34-145); MB/CK RELATIVE INDEX 4.91 (< OR =4)
[2025-06-07 18:19] VITALS: BP 192/102; TEMP 98.5; O2SAT 97
== END 2025-06-07 18:26 | disposition short-term general hospital (02) ==
LOC: M ED 12:37
DX: I21.4 Non-ST elevation (NSTEMI) myocardial infarction (principal); I10 Essential (primary) hypertension; E78.5 Hyperlipidemia, unspecified; Z86.73 Personal history of transient ischemic attack (TIA), and cerebral infarction without residual deficits; Z95.5 Presence of coronary angioplasty implant and graft; Z79.01 Long term (current) use of anticoagulants; Z79.02 Long term (current) use of antithrombotics/antiplatelets; Z85.42 Personal history of malignant neoplasm of other parts of uterus; Z79.82 Long term (current) use of aspirin; Z79.899 Other long term (current) drug therapy; Z88.1 Allergy status to other antibiotic agents; Z88.2 Allergy status to sulfonamides; Z91.040 Latex allergy status
CPT/HCPCS: 71045; 71275; 80048; 80076; 82550; 82553; 83690; 83880; 84484; 85025; 85610; 85730; 93005; 93041; 94760; 96365; 99285; Q9967